=== PATIENT | female | born 1995 | race Caucasian/White ===

== ENCOUNTER 2017-01-31 09:52 | Emergency (ER) | payer MEDICAID ==
[~2017-01-31] VITALS: Wt 68.0 kg
[~2017-01-31 09:52] MED LIST: ACET500C5 PO; AMO500 PO; IBUP-1542 PO; LORA-441 PO; MECL-77 PO; MEDR2.5T PO; ONDA4TAB8 PO; ONDA8TAB14 PO; PREN-39 PO
[2017-01-31 12:01] LABS: URINE BLOOD (Dip) POC Negative (NEGATIVE)
--- NOTE | 2017-01-31 12:25 | RADRPT ---
PROCEDURE: CT brain without contrast CLINICAL INDICATION: Headaches TECHNIQUE: CT of the brain without contrast was performed on a multidetector CT scanner, with multi planar reformats. One or more of the following dose reduction techniques were used: Automated expos ure control, adjustment in mA and / or kV according to patient size, use of iterative reconstructive technique. CTDIvol = 45 mGy; DLP = 630 mGy-cm. COMPARISON: 09/09/2016 FINDINGS: No acute intracranial hemorrhage is identified. No extra-axial fluid collection is seen. There is no mass effect. No midline shift is identified. Ventricles and sulci are within normal limits for size and configuration. The density of the brain is within normal limits. Spring-white differentiation is preserved. Osseous structures are unremarkable. There is interval complete left ethmoid and sphenoid sinus opa cification, and near complete left frontal sinus opacification. IMPRESSION: 1. No evidence of acute intracranial pathology; unremarkable noncontrast CT of the brain. 2. Paranasal sinus disease described above. RPTAT: VV .Kanu Rankin MD, Date Time Electronically viewed and signed by .Kanu Rankin MD, on 01/31/2017 12:25 .O/
[2017-01-31] MEDS ORDERED: AMOX1TAB10 PO (12:49)
[2017-01-31] MEDS ORDERED: IBUP-1542 PO (12:49)
--- NOTE | 2017-01-31 12:58 | ERA ---
ER Documentation Chief Complaint Date/Time DATE: 01/31/17 TIME: 12:52 Chief Complaint HEADACHE WITH DIZZNESS FOR THE PAST FEW DAYS. NO DISTRESS NO NEURO HPI Patient presents with 3 weeks of headaches worse over the last 2 weeks. Patient was seen in the emergency department one month ago and follow-up with her PCP shortly after. Headaches typically occur in the morning and are throbbing and bandlike around the front of the forehead. Patient has tried Tylenol with little relief. Reports mild nausea and vomiting. Denies fever, diarrhea, abdominal pain. ROS All systems reviewed and are negative except as per history of present illness. Medications Home Meds Active Scripts Ibuprofen* (Motrin*) 600 Mg Tab, 600 MG PO Q6 for HEADACHE, #30 TAB Prov:LUCRECIA ROWELL PA-C 01/31/17 Amoxicillin/Potassium Clav (Amox-Clav 875-125 mg Tablet) 875-125 mg Tab, 1 TAB PO BID WITH MEALS for 10 Days, #20 TAB Prov:LUCRECIA ROWELL PA-C 01/31/17 Acetaminophen* (Tylophen*) 500 Mg Capsule, 500 MG PO Q6H Y for FEVER, #30 TAB Prov:ZARINA JOHNSON PA-C 10/15/16 Ibuprofen* (Ibuprofen*) 600 Mg Tablet, 600 MG PO Q6, #30 TAB Prov:ZARINA JOHNSON PA-C 10/15/16 Amoxicillin* (Amoxicillin*) 500 Mg Cap, 500 MG PO BID for 7 Days, CAP Prov:ZARINA JOHNSON PA-C 10/15/16 Ondansetron (Ondansetron Odt) 8 Mg Tab.rapdis, 8 MG PO Q6H Y for NAUSEA AND/OR VOMITING, #8 TAB Prov:GIANFRANCO EDGE MD 09/09/16 Lorazepam* (Ativan*) 0.5 Mg Tablet, 0.5 MG PO Q8, #12 TAB Prov:GIANFRANCO EDGE MD 09/09/16 Ondansetron Hcl* (Zofran*) 4 Mg Tablet, 4 MG PO Q6H for NAUSEA AND/OR VOMITING, #30 TAB Prov:LAQUITA BARLOW 09/07/16 Ibuprofen* (Motrin*) 600 Mg Tab, 600 MG PO Q6, #30 TAB Prov:LAQUITA BARLOW 09/07/16 Meclizine Hcl* (Meclizine Hcl*) 25 Mg Tablet, 25 MG PO Q8H Y for DIZZINESS for 3 Days, TAB Prov:LAQUITA BARLOW 09/07/16 Ibuprofen* (Motrin*) 600 Mg Tab, 600 MG PO Q6, #30 TAB Prov:LAQUITA BARLOW 04/02/16 Medroxyprogesterone Acetate* (Provera*) 2.5 Mg Tablet, 2.5 MG PO DAILY for 5 Days, TAB Prov:LAQUITA BARLOW 04/02/16 Reported Medications Vits W-Ca,Fe,Fa(<1MG) ( Vitamins) 1 Tab Tablet, 1 TAB PO for 7 Days 11/15/14 Allergies Allergies: Coded Allergies: orange juice (Unverified Allergy, Severe, 01/31/17) egg (Verified Allergy, Unknown, 01/31/17) Uncoded Allergies: CHOCOLATE (Allergy, Severe, 11/15/14) PMhx/Soc History of Surgery: No Anesthesia Reaction: No Hx Neurological Disorder: No Hx Respiratory Disorders: Yes (ASTHMA) Hx Cardiac Disorders: No Hx Psychiatric Problems: No Hx Miscellaneous Medical Probl: No Hx Alcohol Use: No Hx Substance Use: No Hx Tobacco Use: No Smoking Status: Never smoker Physical Exam Vitals Vital Signs Date Time Temp Pulse Resp B/P Pulse Ox O2 Delivery O2 Flow Rate FiO2 01/31/17 09:54 98.0 73 21 114/75 99 Physical Exam Const: [] Head: Atraumatic, no sinus tenderness. Eyes: Normal Conjunctiva ENT: Normal External Ears, Nose and Mouth. Neck: Full range of motion..~ No meningismus. Resp: Clear to auscultation bilaterally Cardio: Regular rate and rhythm, no murmurs Abd: Soft, non tender, non distended. Normal bowel sounds Skin: No petechiae or rashes Back: No midline or flank tenderness Ext: No cyanosis, or edema Neur: Awake and alert Psych: Normal Mood and Affect Results 24 hrs Laboratory Tests Test 01/31/17 11:59 Bedside Urine Blood Negative Bedside Urine Glucose (UA) Negative Bedside Urine Ketones (LAB) Negative Bedside Urine Leukocyte Esterase (L Negative Bedside Urine Nitrite (LAB) Negative Bedside Urine Protein (LAB) Negative Bedside Urine pH (LAB) 5.5 Procedures/MDM Patient presents with a chronic headache of 3 weeks duration. Patient was in the ED 1 month ago and followed up with her PCP shortly after. Patient has not received a diagnosis. For this reason, a CT of the patient's to evaluate possible brain pathology. CT scan results showed there was opacification of the paranasal sinuses. We will treat the patient with Augmentin to treat sinus infection and prescribed ibuprofen for pain and discomfort. Patient should return to clinic if symptoms worsen Departure Diagnosis: Primary Impression: Headache Additional Impression: Sinusitis Condition: Stable Patient Instructions: Self-Care for Headaches, Acute Sinusitis Additional Instructions: Return to ED if symptoms worsen. LUCRECIA ROWELL PA-C Jan 31, 2017 12:58
== END 2017-01-31 13:07 | disposition home or self-care (01) ==
LOC: FTE 09:52
DX: R51 Headache (principal); J01.90 Acute sinusitis, unspecified; J45.909 Unspecified asthma, uncomplicated
CPT/HCPCS: 70450; 81003; Z7502

== ENCOUNTER 2017-05-14 23:26 | Emergency (ER) | payer SELFPAY ==
[~2017-05-14] VITALS: Ht 160 cm; Wt 66.0 kg
[~2017-05-14 23:26] MED LIST changes: +AMOX1TAB10 PO
[2017-05-14 23:30] VITALS: Ht 160 cm; Wt 66.0 kg
[2017-05-15] MEDS ORDERED: IBUP400T22 PO (00:41)
--- NOTE | 2017-05-15 00:45 | ERA ---
ER Documentation Chief Complaint Date/Time DATE: 05/15/17 TIME: 00:42 Chief Complaint lower abd pain x 2 days, placement of IUD yesterday HPI This is a 22-year-old female presenting one day after IUD placement. Patient states that she has continued pelvic pain. Patient denies bleeding, dysuria, hematuria, discharge, fever, abdominal pain, nausea, vomiting, diarrhea, constipation or similar symptoms in the past. Patient has not taken any medication to relieve the symptoms. Patient was originally given ibuprofen in clinic with mild to moderate relief. Patient has no other complaints and describes no other associated manifestations. ROS All systems reviewed and are negative except as per history of present illness. Medications Home Meds Active Scripts Ibuprofen* (Motrin*) 400 Mg Tab, 400 MG PO Q6, #30 TAB Prov:LUCRECIA ROWELL PA-C 05/15/17 Ibuprofen* (Motrin*) 600 Mg Tab, 600 MG PO Q6 for HEADACHE, #30 TAB Prov:LUCRECIA ROWELL PA-C 01/31/17 Amoxicillin/Potassium Clav (Amox-Clav 875-125 mg Tablet) 875-125 mg Tab, 1 TAB PO BID WITH MEALS for 10 Days, #20 TAB Prov:LUCRECIA ROWELL PA-C 01/31/17 Acetaminophen* (Tylophen*) 500 Mg Capsule, 500 MG PO Q6H Y for FEVER, #30 TAB Prov:ZARINA JOHNSON PA-C 10/15/16 Ibuprofen* (Ibuprofen*) 600 Mg Tablet, 600 MG PO Q6, #30 TAB Prov:ZARINA JOHNSON PA-C 10/15/16 Amoxicillin* (Amoxicillin*) 500 Mg Cap, 500 MG PO BID for 7 Days, CAP Prov:ZARINA JOHNSON PA-C 10/15/16 Ondansetron (Ondansetron Odt) 8 Mg Tab.rapdis, 8 MG PO Q6H Y for NAUSEA AND/OR VOMITING, #8 TAB Prov:GIANFRANCO EDGE MD 09/09/16 Lorazepam* (Ativan*) 0.5 Mg Tablet, 0.5 MG PO Q8, #12 TAB Prov:GIANFRANCO EDGE MD 09/09/16 Ondansetron Hcl* (Zofran*) 4 Mg Tablet, 4 MG PO Q6H for NAUSEA AND/OR VOMITING, #30 TAB Prov:LAQUITA BARLOW 09/07/16 Ibuprofen* (Motrin*) 600 Mg Tab, 600 MG PO Q6, #30 TAB Prov:LAQUITA BARLOW 09/07/16 Meclizine Hcl* (Meclizine Hcl*) 25 Mg Tablet, 25 MG PO Q8H Y for DIZZINESS for 3 Days, TAB Prov:LAQUITA BARLOW 09/07/16 Ibuprofen* (Motrin*) 600 Mg Tab, 600 MG PO Q6, #30 TAB Prov:LAQUITA BARLOW 04/02/16 Medroxyprogesterone Acetate* (Provera*) 2.5 Mg Tablet, 2.5 MG PO DAILY for 5 Days, TAB Prov:LAQUITA BARLOW 04/02/16 Reported Medications Vits W-Ca,Fe,Fa(<1MG) ( Vitamins) 1 Tab Tablet, 1 TAB PO for 7 Days 11/15/14 Allergies Allergies: Coded Allergies: orange juice (Unverified Allergy, Severe, 01/31/17) egg (Verified Allergy, Unknown, 01/31/17) Uncoded Allergies: CHOCOLATE (Allergy, Severe, 11/15/14) PMhx/Soc Medical and Surgical Hx: pt denies Surgical Hx, Unable to obtain History of Surgery: No Anesthesia Reaction: No Hx Neurological Disorder: No Hx Respiratory Disorders: Yes (ASTHMA) Hx Cardiac Disorders: No Hx Psychiatric Problems: No Hx Miscellaneous Medical Probl: No Hx Alcohol Use: No Hx Substance Use: No Hx Tobacco Use: No Smoking Status: Never smoker Physical Exam Vitals Vital Signs Date Time Temp Pulse Resp B/P Pulse Ox O2 Delivery O2 Flow Rate FiO2 05/14/17 23:30 98.3 66 20 115/75 99 Physical Exam Const: Well-appearing 22-year-old female no acute distress. Head: Atraumatic Eyes: Normal Conjunctiva ENT: Normal External Ears, Nose and Mouth. Neck: Full range of motion..~ No meningismus. Resp: Clear to auscultation bilaterally Cardio: Regular rate and rhythm, no murmurs Abd: Soft, non tender, non distended. Normal bowel sounds. No pelvic pain. No suprapubic tenderness. Skin: No petechiae or rashes Back: No midline or flank tenderness. No CVA tenderness. Ext: No cyanosis, or edema Neur: Awake and alert Psych: Normal Mood and Affect Procedures/MDM Patient was evaluated and worked up for lower pelvic discomfort one day after IUD placement as described in history and physical examination. Most likely diagnosis is pain secondary to IUD placement. The treatment plan will thus include outpatient ibuprofen as needed for discomfort. At this time I do not suspect ovarian torsion, tubo-ovarian abscess, mechanical obstruction, ectopic , hernia, appendicitis, intestinal ischemia, PID, AAA, diverticulitis or cystitis. The patient is well appearing, and tolerates PO. I have spoke with the patient regarding their condition and future management. They have verbally responded that they understand their status and treatment plan. The patients vitals are stable, and their current condition is appropriate for discharge. The patient will be given discharge instructions with return precautions. Departure Diagnosis: Primary Impression: IUD complication Qualified Code: T83.9XXA - Complication of intrauterine device (IUD), unspecified complication, initial encounter Additional Impression: Pelvic pain Condition: Stable Patient Instructions: Control: IUD (Intrauterine Device) Additional Instructions: Follow-up with [facility] if symptoms persist. Return the the emergency department immediately if symptoms worsen or change. If you have any questions regarding medications, ask your pharmacist or us before you leave. If any adverse reactions occur while taking your medications, discontinue the treatment and return to the emergency department immediately. Take your medications as directed, and complete the entire course of treatment. LUCRECIA ROWELL PA-C May 15, 2017 00:45
== END 2017-05-15 00:59 | disposition home or self-care (01) ==
LOC: FTE 23:26
DX: T83.9XXA Unspecified complication of genitourinary prosthetic device, implant and graft, initial encounter (principal); J45.909 Unspecified asthma, uncomplicated; Y76.2 Prosthetic and other implants, materials and accessory obstetric and gynecological devices associated with adverse incidents
CPT/HCPCS: 99283

== ENCOUNTER 2018-03-30 16:20 | Emergency (ER) | END 2018-03-30 21:18 | disposition home or self-care (01) ==

== ENCOUNTER 2019-06-23 11:51 | Emergency (ER) | payer MEDICAID ==
[~2019-06-23] VITALS: Ht 162.6 cm; Wt 63.5 kg
[~2019-06-23 11:51] MED LIST changes: -AMO500 PO; +AMOX500C2 PO; +FAMO-96 PO; +IBUP-1561 PO; +LOPE2CAP PO; +MECL12.574 PO; +NAPR-985 PO; +PHEN177S6 MM
[2019-06-23 11:57] VITALS: BP 101/62; PULSE 64; RESP 18; Ht 162.6 cm; Wt 63.5 kg
[2019-06-23] MEDS ORDERED: IBUPROFEN 800 MG TAB PO ONE (13:00)
--- NOTE | 2019-06-23 14:24 | ERD ---
ER Documentation Chief Complaint Chief Complaint right 3rd finger swollen & painful x1wk HPI 24-year-old female presents to ED complaining of pain in her middle finger on her right hand x1 week. She states she was lifting a bag that was very heavy and her middle finger got twisted. She states that the finger has been painful and swollen since the incident. In addition today she twisted her finger again at work trying to shovel ice. She denies any previous injury to the finger. She has used Tylenol and Motrin with mild to moderate relief of her symptoms. She states that it feels better when massaging. ROS All systems reviewed and are negative except as per history of present illness. Medications Home Meds Active Scripts Naproxen* (Naprosyn*) 500 Mg Tablet, 500 MG PO BID PRN for PAIN AND/OR INFLAMMATION, #30 TAB Prov:ALL SHIN PA-C 06/23/19 Phenol* (Throat [place]*) 177 Ml [place], 2 SPRAY MM Q2H PRN for SORE THROAT for 5 Days, SPRAY Prov:LAQUITA BARLOW 03/30/18 Famotidine* (Pepcid*) 20 Mg Tablet, 20 MG PO BID for 4 Days, TAB Prov:LAQUITA BARLOW 03/30/18 Loperamide Hcl* (Imodium*) 2 Mg Capsule, 2 MG PO .AFTER EA LOOSE BM PRN for DIARRHEA, #10 TAB Prov:LAQUITA BARLOW 03/30/18 Ondansetron Hcl* (Zofran*) 4 Mg Tablet, 4 MG PO Q6H for NAUSEA AND/OR VOMITING, #30 TAB Prov:LAQUITA BARLOW 03/30/18 Ibuprofen* (Motrin*) 600 Mg Tab, 600 MG PO Q6, #20 TAB Prov:LUCRECIA DENTON MD 08/10/17 Meclizine Hcl* (Antivert*) 12.5 Mg Tab, 25 MG PO Q6H PRN for DIZZINESS, #20 TAB Prov:LUCRECIA DENTON MD 08/10/17 Ibuprofen* (Motrin*) 400 Mg Tab, 400 MG PO Q6, #30 TAB Prov:LUCRECIA ROWELL PA-C 05/15/17 Ibuprofen* (Motrin*) 600 Mg Tab, 600 MG PO Q6 for HEADACHE, #30 TAB Prov:LUCRECIA ROWELL PA-C 01/31/17 Amoxicillin/Potassium Clav (Amox-Clav 875-125 mg Tablet) 875-125 mg Tab, 1 TAB PO BID WITH MEALS for 10 Days, #20 TAB Prov:SORINLUCRECIA KELLOGG 01/31/17 Acetaminophen* (Tylophen*) 500 Mg Capsule, 500 MG PO Q6H PRN for FEVER, #30 TAB Prov:ZARINA JOHNSON PA-C 10/15/16 Ibuprofen* (Ibuprofen*) 600 Mg Tablet, 600 MG PO Q6, #30 TAB Prov:ZARINA JOHNSON PA-C 10/15/16 Amoxicillin* (Amoxicillin*) 500 Mg Cap, 500 MG PO BID for 7 Days, CAP Prov:ZARINA JOHNSON PA-C 10/15/16 Ondansetron (Ondansetron Odt) 8 Mg Tab.rapdis, 8 MG PO Q6H PRN for NAUSEA AND/OR VOMITING, #8 TAB Prov:GIANFRANCO EDGE MD 09/09/16 Lorazepam* (Ativan*) 0.5 Mg Tablet, 0.5 MG PO Q8, #12 TAB Prov:GIANFRANCO EDGE MD 09/09/16 Ondansetron Hcl* (Zofran*) 4 Mg Tablet, 4 MG PO Q6H for NAUSEA AND/OR VOMITING, #30 TAB Prov:LAQUITA BARLOW 09/07/16 Ibuprofen* (Motrin*) 600 Mg Tab, 600 MG PO Q6, #30 TAB Prov:LAQUITA BARLOW 09/07/16 Meclizine Hcl* (Meclizine Hcl*) 25 Mg Tablet, 25 MG PO Q8H PRN for DIZZINESS for 3 Days, TAB Prov:LAQUITA BARLOW 09/07/16 Ibuprofen* (Motrin*) 600 Mg Tab, 600 MG PO Q6, #30 TAB Prov:LAQUITA BARLOW 04/02/16 Medroxyprogesterone Acetate* (Provera*) 2.5 Mg Tablet, 2.5 MG PO DAILY for 5 Days, TAB Prov:LAQUITA BARLOW 04/02/16 Reported Medications Vits W-Ca,Fe,Fa(<1MG) ( Vitamins) 1 Tab Tablet, 1 TAB PO for 7 Days 11/15/14 Allergies Allergies: Coded Allergies: orange juice (Unverified Allergy, Severe, 8/3/19) egg (Verified Allergy, Unknown, 06/23/19) Uncoded Allergies: CHOCOLATE (Allergy, Severe, 11/15/14) PMhx/Soc Medical and Surgical Hx: pt denies Surgical Hx History of Surgery: No Anesthesia Reaction: No Hx Neurological Disorder: No Hx Respiratory Disorders: Yes (ASTHMA) Hx Cardiac Disorders: No Hx Psychiatric Problems: No Hx Miscellaneous Medical Probl: No Hx Alcohol Use: No Hx Substance Use: No Hx Tobacco Use: No Smoking Status: Never smoker FmHx Family History: No diabetes Physical Exam Vitals Vital Signs Date Temp Pulse Resp B/P (MAP) Pulse Ox O2 O2 Flow FiO2 Time Delivery Rate 06/23/19 97.6 64 18 101/62 97 11:57 (75) Physical Exam Const: No acute distress Head: Atraumatic Neck: Full range of motion. Resp: Clear to auscultation bilaterally Cardio: Regular rate and rhythm, Abd: Soft, non tender, non distended. Skin: No rashes Back: No midline or flank tenderness Ext: Right hand: Swollen middle finger, tenderness to the DIP joint, fair range of motion secondary to pain, 2+ pulses, good sensation Neur: Awake and alert Psych: Normal Mood and Affect Results 24 hrs Current Medications Medications Dose Sig/Elias Start Time Status Last (Trade) Ordered Route PRN Stop Time Admin Dose Reason Admin Ibuprofen 800 mg ONCE ONCE 06/23/19 DC 06/23/19 (Motrin) PO 13:00 06/23/19 12:51 13:01 Procedures/MDM ED COURSE: The patient was stable throughout ED course. I kept the patient informed of laboratory and diagnostic imaging results throughout the ED course. DIAGNOSTIC IMAGING: Read by radiologist. PROCEDURE: XR Right Hand CLINICAL INDICATION: Injury to middle finger TECHNIQUE: PA, oblique, and lateral radiographs were submitted. COMPARISON: None FINDINGS: Osseous structures: appear well mineralized and intact with no fracture or destructive process identified. Joint spaces: are well maintained, with no significant spurring, erosion or joint effusion evident. Soft tissues: appear unremarkable. IMPRESSION: Unremarkable right hand. Chu Neumann Physician Date Time Electronically viewed and signed by Physician Kavitha on 06/23/2019 13:07 PROCEDURES: SPLINT APPLICATION: The patient was verbally consented at bedside prior to splint application. Patient was explained the risks, benefits and alternatives to this procedure. The patient was neurovascularly intact prior to and status post application of the splint. The patient tolerated the procedure well with no complications. Splint type: metal finger Extremity: Right hand, middle finger Indication: finger sprain MEDICATIONS GIVEN: Motrin, ice pack Patient tolerated medication well with no adverse reactions. Patient reported improvement in pain. MEDICAL DECISION MAKING: Patient is a 24-year-old female presenting with pain and swelling in her right hand middle finger x1 week. I have low suspicion for fracture, compartment syndrome, septic arthritis, osteomyelitis. X-ray imaging was done per patient request and was unremarkable. At this time I think patient is suffering from a finger sprain. Patient was placed in a splint and was Neurovascularly intact pre and post splint placement with good fit. Patient's extremity symptoms have stabilized while they have been evaluated in the department and are appropriate for outpatient follow up. No evidence of fractures, dislocations, compartment syndrome, neurologic injury, vascular injury, open joint, open fracture, tendon laceration, septic arthritis, osteomyelitis, DVT, foreign body, or other yuliana rgent conditions. Vital signs were reviewed. Patient is afebrile. Patient was not hypoxic. Patient was hemodynamically stable. Patient was told to follow up with primary care for further care and management. PRESCRIPTION: Naproxen DISCHARGE: At this time, patient is stable for discharge and outpatient management. I have instructed the patient to follow-up with their primary care physician in 1-2 days. I have discussed with the patient the possibility of needing to see a specialist for further workup and imaging studies if symptoms persist. I have instructed the patient to promptly return to the ER for any new or worsening symptoms including increased pain, fever, nausea, vomiting, weakness or LOC. The patient expressed understanding of and agreement with this plan. All questions were answered. Home care instructions were provided. Disclaimer: Inadvertent spelling and grammatical errors are likely due to EHR/dictation software use and do not reflect on the overall quality of patient care. Also, please note that the electronic time recorded on this note does not necessarily reflect the actual time of the patient encounter. Departure Diagnosis: Primary Impression: Finger injury Encounter type: initial encounter Laterality: right Qualified Codes: S69.91XA - Unspecified injury of right wrist, hand and finger(s), initial encounter Condition: Fair Patient Instructions: Sprain Finger Referrals: [facility] YOU HAVE RECEIVED A MEDICAL SCREENING EXAM AND THE RESULTS INDICATE THAT YOU DO NOT HAVE A CONDITION THAT REQUIRES URGENT TREATMENT IN THE EMERGENCY DEPARTMENT. FURTHER EVALUATION AND TREATMENT OF YOUR CONDITION CAN WAIT UNTIL YOU ARE SEEN IN YOUR DOCTORS OFFICE WITHIN THE NEXT 1-2 DAYS. IT IS YOUR RESPONSIBILITY TO MAKE AN APPOINTMENT FOR FOLOW-UP CARE. IF YOU HAVE A PRIMARY DOCTOR --you should call your primary doctor and schedule an appointment IF YOU DO NOT HAVE A PRIMARY DOCTOR YOU CAN CALL OUR PHYSICIAN REFERRAL HOTLINE AT IF YOU CAN NOT AFFORD TO SEE A PHYSICIAN YOU CAN CHOSE FROM THE FOLLOWING [facility] [address] [facility] [address] [facility] [address] [facility] [address] [facility] [address] [facility]. [facility] [address] [facility] [facility] YOU HAVE RECEIVED A MEDICAL SCREENING EXAM AND THE RESULTS INDICATE THAT YOU DO NOT HAVE A CONDITION THAT REQUIRES URGENT TREATMENT IN THE EMERGENCY DEPARTMENT. FURTHER EVALUATION AND TREATMENT OF YOUR CONDITION CAN WAIT UNTIL YOU ARE SEEN IN YOUR DOCTORS OFFICE WITHIN THE NEXT 1-2 DAYS. IT IS YOUR RESPONSIBILITY TO MAKE AN APPOINTMENT FOR FOLOW-UP CARE. IF YOU HAVE A PRIMARY DOCTOR --you should call your primary doctor and schedule and appointment IF YOU DO NOT HAVE A PRIMARY DOCTOR YOU CAN CALL OUR PHYSICIAN REFERRAL HOTLINE AT . IF YOU CAN NOT AFFORD TO SEE A PHYSICIAN YOU CAN CHOSE FROM THE FOLLOWING [facility] INSTITUTIONS: [facility] [address] [place] [address] [facility] [address] [place] [address] [facility] + [facility] [address] [place] [address] [facility] Ur[facility] Care 7 a.m.- 11 p.m. Every Day of the Week NO APPOINTMENT OR AUTHORIZATION NEEDED COMMUNITY CLINIC () Usluiza se moeller hecho un examen mdico de control que le indica que no est en patt condicin que requiera tratamiento urgente en el Departamento de Emergencia. Un estudio ms profundo y el tratamiento de turner condicin pueden esperar sin ningn riesgo hasta que usted sea atendida/o en el consultorio de turner mdico o patt clnica. Es responsabilidad suya arreglar patt evette para el seguimiento del wyatt. MANEJO DE CONDICIONES NO URGENTES EN EL FUTURO 1) Si usted tiene un mdico de atencin primaria: Usted debera llamar a turner mdico de atencin primaria antes de venir al departamento de emergencia. Despus de las horas de consultorio, turner doctor o turner asociado/a est disponible por telfono. El mdico o enfermero de levy en el servicio telefnico puede asesorarle por mau medio para atender el problema, o wyatt contrario se puede programar patt evette. 2) Si usted no tiene un mdico de atencin primaria: Llame al mdico o clnica de referencia que aparece abajo nichelle las horas de consultorio para hacer patt evette para que le vean. CLINICAS: [facility] [phone] [facility] [phone] [facility] [phone] [place] [id number] [phone] [place] [phone] [place] [id number] [phone] Additional Instructions: Call your primary care doctor TOMORROW for an appointment during the next 1-2 days.See the doctor sooner or return here if your condition worsens before your appointment time. ALL SHIN PA-C Jun 23, 2019 14:24
== END 2019-06-23 14:20 | disposition left against medical advice (07) ==
LOC: FTE 11:51
DX: S69.91XA Unspecified injury of right wrist, hand and finger(s), initial encounter (principal); J45.909 Unspecified asthma, uncomplicated; X50.0XXA Overexertion from strenuous movement or load, initial encounter; Y92.9 Unspecified place or not applicable
CPT/HCPCS: 29130; 73130; Z7502; Z7610